=== PATIENT | male | born 1955 | race Caucasian/White ===

== ENCOUNTER 2019-07-21 09:45 | Outpatient (CLI) | payer BC ==
--- NOTE | 2019-07-21 10:05 | RAD ---
Exam:3 views left foot HISTORY: Pain. Sprain. COMPARISON: None FINDINGS: Mild degenerative change the first metatarsal phalangeal joint space. Lisfranc alignment is maintained. No fracture. There is midfoot soft tissue swelling. IMPRESSION: No fracture
== END 2019-07-21 09:46 | disposition home or self-care (01) ==
LOC: BICRAD 09:45
PROVIDERS: ATTEND Family Medicine
DX: S93.602A Unspecified sprain of left foot, initial encounter (principal)